=== PATIENT | male | born 1955 | race Caucasian/White ===

== ENCOUNTER 2016-10-24 08:29 | Emergency (ER) | payer OTHER ==
[~2016-10-24] VITALS: Ht 190.5 cm; Wt 110.0 kg
[~2016-10-24 08:29] MED LIST: CLEOCIN300 MG PO; VICODIN,LORT1 TABLET PO
[2016-10-24] MEDS ORDERED: INDOCIN50 MG PO (10:12)
[2016-10-24] MEDS ORDERED: PREDNISONE50 MG PO (10:15)
[2016-10-24 10:54] VITALS: BP 130/91
== END 2016-10-24 10:55 | disposition home or self-care (01) ==
LOC: EME 08:29 → EXP 08:29
DX: M10.9 Gout, unspecified (principal); M25.532 Pain in left wrist; M25.572 Pain in left ankle and joints of left foot
CPT/HCPCS: 73110; 99281; 99284; J7512

== ENCOUNTER 2017-06-06 10:43 | Day surgery (SDC) | payer OTHER ==
[~2017-06-06] VITALS: Ht 188 cm; Wt 107.5 kg
[~2017-06-06 10:43] MED LIST changes: +INDOCIN50 MG PO; +LIPITOR40 MG PO; +LOPRESSOR25 MG PO; +NEURONTIN800 MG PO; +PREDNISONE50 MG PO; +ZESTRIL5 MG PO; +ZYLOPRIM100 MG PO
[2017-06-06] MEDS ORDERED: HYDROCODON-ACE1 EAC7 PO (11:33)
[2017-06-06 11:49] VITALS: BP 152/93
[2017-06-06 16:05] VITALS: BP 131/72
[2017-06-06 17:00] VITALS: BP 122/70
== END 2017-06-06 17:26 | disposition home or self-care (01) ==
LOC: SDC 10:43
DX: S83.241A Other tear of medial meniscus, current injury, right knee, initial encounter (principal); S72.434A Nondisplaced fracture of medial condyle of right femur, initial encounter for closed fracture; M17.11 Unilateral primary osteoarthritis, right knee; I10 Essential (primary) hypertension; E78.00 Pure hypercholesterolemia, unspecified; Z87.891 Personal history of nicotine dependence
CPT/HCPCS: 73560; 76000; J0330; J0461; J0690; J1170; J2250; J2270; J2405; J3010